=== PATIENT | female | born 1985 | race Caucasian/White ===

== ENCOUNTER 2016-05-13 19:06 | Emergency (ER) | payer SELFPAY ==
[2016-05-13 19:28] VITALS: BP 138/68; PULSE 83; RESP 16; TEMP 98.8; O2SAT 97
[2016-05-13 19:43] LABS: COLOR YELLOW; LEUKOCYTE ESTERASE,URINE NEGATIVE (NEGATIVE); NITRITE,URINE NEGATIVE (NEGATIVE); PH,URINE 5.5 (5.0-7.5)
[2016-05-13 19:55] LABS: MUCUS 4+ /lpf (NONE-1+)
[2016-05-13 19:56] LABS: BACTERIA 1+ /hpf (NONE SEEN); WBC,URINE 0-1 /hpf (0-3)
--- NOTE | 2016-05-13 21:32 | DX ---
Single View Abdomen History: Right flank pain. Comparison: None available. Findings: Bowel gas pattern is normal. There is no free air. No definite renal or ureteral calcifi cations are identified. The right lobe of the liver is elongated. The bones are normal. Impressions 1. No visible etiology for the patient's pain. 2. Elongated right lobe of the liver, which could be a Eden's lobe (normal variant) or less likely hepatomegaly.
--- NOTE | 2016-05-13 22:08 | CT ---
CT Abdomen Unenhanced (Renal Stone Protocol) Indication: Right flank pain. Technique: Axial unenhanced CT imaging was performed through the abdomen and pelvis, without contras t. Dose reduction techniques were utilized. Comparison: Plain film abdomen the same day at 5 hours. Findings: Abdomen: The lung bases are clear. The imaged noncontrast portions of the liver, spleen, gallbladder, pancreas, and adrenal glands are u nremarkable. The kidneys have a normal unenhanced appearance. No renal stones are identified. No s tones are identified in the visualized portions of the ureters. Moderate stool is present in the colon. The visible colon and small bowel are normal caliber. The v isible portions of the appendix are normal, with incomplete visualization of the appendix. A tiny fa t-containing periumbilical hernia is present. The aorta is normal caliber. Minimal degenerative nguyễn nge is present in the spine. No aggressive osseous lesions are present. Impressions 1. No obstructive uropathy. 2. Constipation. Attention: This CT examination is specifically designed to evaluate patients who are clinically susp ected of having acute obstructive uropathy. This examination does not use radiographic contrast, and as such, provides only a limited evaluation of the abdomen, pelvis, and retroperitoneum. If there is further clinical suspicion for pathological conditions other than obstructive uropathy, a complete CT evaluation of the abdomen and pelvis utilizing intravenous, oral, and rectal contrast should be c onsidered. Findings discussed with Dr. Jacquie Suresh on May 13, 2016 at 2154 hours.
[2016-05-13] MEDS ORDERED: DIAZEPAM 5 MG PREPACK#4 BTL TAKEHOME ONE (22:20)
--- NOTE | 2016-05-13 22:21 | UCPHY ---
H & P Time Seen by Provider: 05/13/16 19:46 Patient Type: New HPI/ROS: 30-year-old female presents complaining lumbar pain right greater than left for several days duration approximately 1 week with occasional tingling in her right foot. She does not have a history of chronic back pain and she does not require a specific injury although she states she does recall noticing her that her back was quite uncomfortable while having intercourse in the "doggy" position. She denies loss of bowel or bladder she denies numbness in her extremities or weakness in her legs. She states the pain is at times sharp and stabbing in her right flank She denies difficulty urinating or painful urination, no nausea no vomiting no diarrhea Review of systems General no fever no chills no weakness HEENT no eye pain no eye discharge. No eye redness, no sore throat Respiratory no cough, no shortness of breath Cardiac no chest pain, no peripheral edema GI no abdominal pain, no diarrhea, no constipation, no nausea, no vomiting no flank pain, no hematuria, no dysuria Musculoskeletal positive myalgias, no joint pain Heme no easy bruising, no easy bleeding Endo no polyuria, no polydipsia Skin no rashes, no pruritus Neuro no syncope, no dizziness, no headaches Psych is no suicidal ideation, no homicidal ideation Past Medical/Surgical History: None Social History: No alcohol or drug use Smoking Status: Never smoked Physical Exam: 30-year-old female alert and oriented in moderate distress secondary to lumbar back pain right greater than left HEENT atraumatic normocephalic, extraocular muscles intact, anicteric Oropharynx negative for erythema negative exudate, tolerating her own secretions Neck supple no meningismus Lungs clear to auscultation bilaterally Heart regular rate and rhythm without murmur rub or gallop Abdomen nondistended normoactive bowel sounds soft nontender Back mild right CVA tenderness, no step-offs, no spinal tenderness Paralumbar tenderness bilaterally Extremities no cyanosis clubbing or edema Neuro alert and oriented, no focal deficits Constitutional: Initial Vital Signs Temperature (C) 37.1 C 05/13/16 19:21 Heart Rate 83 05/13/16 19:21 Respiratory Rate 16 05/13/16 19:21 Blood Pressure 138/68 H 05/13/16 19:21 O2 Sat (%) 97 05/13/16 19:21 Allergies/Adverse Reactions: amoxicillin Allergy (Verified 05/13/16 19:28) Home Medications: Medication Instructions Recorded Diazepam [Valium 5 MG (*)] 5 mg PO TID PRN #15 tab 05/13/16 Obcp 05/13/16 Medical Decision Making - Diagnostics Imaging: CT negative for kidney stone negative for hydronephrosis negative for appendicitis positive for increased stool burden consistent with constipation ED Course/Re-evaluation: Patient seen and evaluated for right flank pain however also with lumbar pain right greater than left and rare right foot attends the needles Differential diagnosis Kidney stone, musculoskeletal pain, lumbar pain, sciatica, pyelonephritis, UTI Urinalysis unremarkable for infection very small amount of blood consistent with patient being on. CT abdomen negative for kidney stone Impression Sciatica Lumbar back pain likely musculoskeletal Plan Diazepam Follow-up with a primary care physician - Data Points Medications Given: Discontinued Medications Diazepam (Valium 5 Mg Prepack#4) 1 btl TAKEHOME EDNOW ONE Stop: 05/13/16 22:21 Last Admin: 05/13/16 22:20 Dose: 1 btl Departure - Departure Disposition: Home, Routine, Self-Care Clinical Impression: Right flank pain, Sciatica, Constipation Condition: Good Instructions: Constipation (ED), High Fiber Diet (ED), Sciatica (ED), Acute Low Back Pain (ED) Referrals: NONE *PRIMARY CARE P,. [Primary Care Provider] - As per Instructions Prescriptions: Diazepam [Valium 5 MG (*)] 5 mg PO TID PRN #15 tab PRN Reason: Spasms - PQRS PQRS Measurement: na
== END 2016-05-13 22:38 | disposition home or self-care (01) ==
LOC: CED 19:06
DX: M54.5 Low back pain (principal); R20.2 Paresthesia of skin
CPT/HCPCS: 74000-PO; 74150-PO; 81003-PO; 81015-PO; 81025-PO; G0463-PO